=== PATIENT | male | born 1990 | race American Indian/Alaskan Native ===

== ENCOUNTER 2017-02-26 19:38 | Emergency (ER) | payer OTHER ==
[2017-02-26 21:10] VITALS: BP 142/92
--- NOTE | 2017-02-27 02:32 | Emergency Department Report ---
Upper Respiratory HPI - HPI Chief Complaint: Upper Respiratory Infection Stated Complaint: COLD Time Seen by Provider: 02/27/17 02:27 URI Symptoms: Rhinorrhea: Yes, Sore Throat: Yes, Ear Pain: No, Cough: Yes, Shortness of Breath: No, Sick Contacts: No, Unable to Take Fluids: No, Urine Output Abnormal: No, Listless Behavior: No - Home Meds and Allergies Home Medications: Previous Rx's Medication Instructions Recorded Last Taken Type ALBUTEROL Inhaler [ProAir HFA 2 puff IH QID PRN #1 inhalation 02/27/17 Unknown Rx Inhaler] Benzonatate [Tessalon Perles] 100 mg PO Q8HR PRN #30 capsule 02/27/17 Unknown Rx predniSONE [Deltasone] 40 mg PO QDAY #10 tab 02/27/17 Unknown Rx Allergies/Adverse Reactions: Allergies Allergy/AdvReac Type Severity Reaction Status Date / Time pollen extracts Allergy Itching Verified 02/26/17 21:06 ED Review of Systems ROS: Stated complaint: COLD Other details as noted in HPI Constitutional: malaise. denies: chills, fever Eyes: denies: eye pain, eye discharge, vision change ENT: throat pain, congestion Respiratory: cough, wheezing Cardiovascular: as per HPI. denies: chest pain Endocrine: no symptoms reported Gastrointestinal: denies: abdominal pain, nausea, diarrhea Genitourinary: denies: urgency, dysuria Musculoskeletal: denies: back pain, joint swelling, arthralgia Skin: denies: rash, lesions Neurological: denies: headache, weakness, paresthesias Psychiatric: as per HPI Hematological/Lymphatic: denies: easy bleeding, easy bruising ED Past Medical Hx - Past Medical History Previous Medical History?: No Hx Asthma: Yes - Surgical History Past Surgical History?: No - Social History Smoking Status: Never Smoker Substance Use Type: None - Medications Home Medications: Home Medications Medication Instructions Recorded Confirmed Last Taken Type ALBUTEROL Inhaler [ProAir HFA 2 puff IH QID PRN #1 inhalation 02/27/17 Unknown Rx Inhaler] Benzonatate [Tessalon Perles] 100 mg PO Q8HR PRN #30 capsule 02/27/17 Unknown Rx predniSONE [Deltasone] 40 mg PO QDAY #10 tab 02/27/17 Unknown Rx ED Bronchiolitis Physical Exam - Exam General: Vital signs noted. No distress. Alert and acting appropriately. HEENT: Yes Pharyngeal Erythema, Yes Rhinorrhea, No Conjuctival Injection, No Dry Mucous Membranes Ear: Neither TM Bulge, Neither TM Erythema, Neither EAC Discharge Neck: No Adenopathy, No Rigidity Lungs: Yes Clear Lung Sounds, Yes Good Air Exchange, Yes Cough, No Wheezes, No Stridor, No Nasal Flaring, No Retractions, No Use of Accessory Muscles Heart: Yes Regular, No Murmur Abdomen: Yes Normal Bowel Sounds, No Tenderness, No Peritoneal Signs Skin: No Rash, No Eczema Neurologic: Alert and oriented, no deficits. Musculoskeletal: Unremarkable. ED Physical Exam - General Limitations: No Limitations General appearance: alert, in no apparent distress - Head Head exam: Present: atraumatic, normocephalic - Eye Eye exam: Present: normal appearance, PERRL, EOMI Pupils: Present: normal accommodation - ENT ENT exam: Present: normal orophraynx, mucous membranes moist, TM's normal bilaterally, normal external ear exam - Expanded ENT Exam Expanded Mouth exam: Present: tongue normal. Absent: tongue elevation Throat exam: Positive: other (nose: boggy bilat turbinate erythema clear post nasal drip, phayrnx Moderate erythem no exudate no lesions uvula midline ). Negative: normal inspection, tonsillar erythema, tonsillomegaly, tonsillar exudate, R peritonsillar mass, L peritonsillar mass - Neck Neck exam: Present: normal inspection, full ROM. Absent: tenderness - Respiratory Respiratory exam: Present: normal lung sounds bilaterally. Absent: respiratory distress, wheezes, stridor, chest wall tenderness - Cardiovascular Cardiovascular Exam: Present: regular rate, normal rhythm. Absent: systolic murmur, diastolic murmur, rubs, gallop - GI/Abdominal GI/Abdominal exam: Present: soft, normal bowel sounds - Rectal Rectal exam: Present: deferred - Extremities Exam Extremities exam: Present: normal inspection - Back Exam Back exam: Present: normal inspection - Neurological Exam Neurological exam: Present: alert, oriented X3, CN II-XII intact, normal gait, reflexes normal - Psychiatric Psychiatric exam: Present: normal affect, normal mood - Skin Skin exam: Present: warm, dry, intact, normal color. Absent: rash ED Course Vital Signs 02/26/17 21:06 Temperature 98.1 F Pulse Rate 74 Respiratory 18 Rate Blood Pressure 142/92 O2 Sat by Pulse 100 Oximetry ED Medical Decision Making - Medical Decision Making pt is a 26 y/o aaf with hx of bronchitis asthma who presents for cough and head congestion x 3 weeks with cough white/yellow intermittent, pt advises that she is out of abluterol inhaler for past 3 weeks pt denies fever or chills no active wheezing no dizziness no lightheadedness no cp no sob, exam: pt appears nontoxic, ent: tm clear , nose boggy clear postnasal drip, pharynx: moderate erythema no exudate, no stridor uvula midline, lung clear no wheezing at this time, plan: refill albuterol inhaler, prednisone, tessalone pearls prn cough, pt will take otc ibuprofen as needed for subjective fever. pt will follow up with pcp in 2-3 days. pt verbalized agreement and understanding of discharge plan. Critical care attestation.: If time is entered above; I have spent that time in minutes in the direct care of this critically ill patient, excluding procedure time. ED Disposition Clinical Impression: Bronchitis URI (upper respiratory infection) Qualifiers: URI type: acute nasopharyngitis (common cold) Qualified Code(s): J00 - Acute nasopharyngitis [common cold] Disposition: - TO HOME OR SELFCARE Is pt being admited?: No Does the pt Need Aspirin: No Condition: Good Instructions: Chronic Bronchitis (ED), Upper Respiratory Infection (ED) Prescriptions: ALBUTEROL Inhaler [ProAir HFA Inhaler] 2 puff IH QID PRN #1 inhalation PRN Reason: Shortness Of Breath Benzonatate [Tessalon Perles] 100 mg PO Q8HR PRN #30 capsule PRN Reason: Cough predniSONE [Deltasone] 40 mg PO QDAY #10 tab Referrals: PRIMARY CARE, [Primary Care Provider] - 3-5 Days Forms: Work/School Release Form(ED) Time of Disposition: 02:38
== END 2017-02-27 02:56 | disposition home or self-care (01) ==
LOC: ED 19:38
DX: J06.9 Acute upper respiratory infection, unspecified (principal); J40 Bronchitis, not specified as acute or chronic; Z88.8 Allergy status to other drugs, medicaments and biological substances
CPT/HCPCS: 99282